=== PATIENT | female | born 1955 | race African-American/Black ===

== ENCOUNTER 2019-06-03 14:27 | Outpatient (CLI) | payer MEDICARE, MEDICAID ==
--- NOTE | 2019-06-03 15:18 | MMO ---
Bilateral MAMMO Bilat Screen [facility]. CLINICAL HISTORY: Patient is 64 years old and is seen for screening. The patient has the following family history of breast cancer: maternal aunt. The patient has no personal history of cancer. The patient has a history of right Excisional Biopsy in July, - benign, bilateral Breast reduction at age 46 and right Excisional Biopsy at age 41 - benign. VIEWS: The views performed were: bilateral craniocaudal with tomosynthesis and bilateral mediolateral oblique with tomosynthesis. FILMS COMPARED: The present examination has been compared to prior imaging studies performed at [facility] on 02/09/2015, 03/13/2016, 04/08/2017 and 04/12/2018. This study has been interpreted with the assistance of computer-aided detection. MAMMOGRAM FINDINGS: There are scattered fibroglandular densities. Benign calcifications are noted bilaterally. There are no suspicious masses, suspicious calcifications, or new areas of architectural distortion. IMPRESSION: THERE IS NO MAMMOGRAPHIC EVIDENCE OF MALIGNANCY. A ROUTINE FOLLOW-UP MAMMOGRAM IN 1 YEAR IS RECOMMENDED. THE RESULTS OF THIS EXAM WERE SENT TO THE PATIENT. ACR BI-RADS Category 2 - Benign finding MAMMOGRAPHY NOTE: 1. A negative mammogram report should not delay a biopsy if a dominant of clinically suspicious mass is present. 2. Approximately 10% to 15% of breast cancers are not detected by mammography. 3. Adenosis and dense breasts may obscure an underlying neoplasm. Reported by: MARGARITA PHILLIPS MD Electonically Signed: [id number]
== END 2019-06-03 14:28 | disposition home or self-care (01) ==
LOC: BICMAMMO 14:27
PROVIDERS: ATTEND Student in an Organized Health Care Education/Training Program
DX: Z12.31 Encounter for screening mammogram for malignant neoplasm of breast (principal); Z80.3 Family history of malignant neoplasm of breast
CPT/HCPCS: 77063; 77067

== ENCOUNTER 2020-07-27 12:55 | Outpatient (CLI) | payer MEDICARE, OTHER ==
--- NOTE | 2020-07-27 13:40 | MMO ---
Bilateral MAMMO Bilat Screen [facility]. CLINICAL HISTORY: Patient is 65 years old and is seen for screening. The patient has the following family history of breast cancer: maternal aunt. The patient has no personal history of cancer. The patient has a history of right Excisional Biopsy in July, - benign, bilateral Breast reduction at age 46 and right Excisional Biopsy at age 41 - benign. VIEWS: The views performed were: bilateral craniocaudal with tomosynthesis and bilateral mediolateral oblique with tomosynthesis. FILMS COMPARED: The present examination has been compared to prior imaging studies performed at [facility] on 03/13/2016, 04/08/2017, 04/12/2018 and 06/03/2019. This study has been interpreted with the assistance of computer-aided detection. MAMMOGRAM FINDINGS: There are scattered fibroglandular densities. There are stable benign appearing calcifications seen in both breasts. There are no suspicious masses, suspicious calcifications, or new areas of architectural distortion. IMPRESSION: THERE IS NO MAMMOGRAPHIC EVIDENCE OF MALIGNANCY. A ROUTINE FOLLOW-UP MAMMOGRAM IN 1 YEAR IS RECOMMENDED. THE RESULTS OF THIS EXAM WERE SENT TO THE PATIENT. ACR BI-RADS Category 2 - Benign finding MAMMOGRAPHY NOTE: 1. A negative mammogram report should not delay a biopsy if a dominant of clinically suspicious mass is present. 2. Approximately 10% to 15% of breast cancers are not detected by mammography. 3. Adenosis and dense breasts may obscure an underlying neoplasm. Reported by: LIZET LOPEZ MD Electonically Signed: [id number]
== END 2020-07-27 12:56 | disposition home or self-care (01) ==
LOC: BICMAMMO 12:55
PROVIDERS: ATTEND Student in an Organized Health Care Education/Training Program
DX: Z12.31 Encounter for screening mammogram for malignant neoplasm of breast (principal); Z91.89 Other specified personal risk factors, not elsewhere classified; Z98.890 Other specified postprocedural states; Z80.3 Family history of malignant neoplasm of breast
CPT/HCPCS: 77063; 77067

== ENCOUNTER 2021-08-20 12:31 | Outpatient (CLI) | payer MEDICARE, OTHER | END 2021-08-20 12:32 | disposition home or self-care (01) | LOC: BICMAMMO 12:31 | PROVIDERS: ATTEND Student in an Organized Health Care Education/Training Program | DX: Z12.31 Encounter for screening mammogram for malignant neoplasm of breast (principal); Z80.3 Family history of malignant neoplasm of breast; Z91.89 Other specified personal risk factors, not elsewhere classified; Z98.890 Other specified postprocedural states | CPT/HCPCS: 77063; 77067 ==

== ENCOUNTER 2022-07-30 09:54 | Outpatient (CLI) | payer OTHER, MEDICAID ==
[2022-07-30 11:26] LABS: Hemoglobin 12.4 g/dL (12.0-15.5); Mean Corpuscular HGB CONC 34.4 g/dL (32.0-36.0); Mean Corpuscular Hemoglobin 30.4 pg (27.0-33.0); Mean Corpuscular Volume 88.2 fl (81.6-98.3); Mean Platelet Volume 9.4 fl (7.4-10.4); Platelet Count 525 10x3/uL (150-450); RBC Distribution Width 14.3 % (11.5-14.5); Red Blood Cell (RBC) Count 4.08 10x6/uL (3.90-5.03); White Blood Cell (WBC) Count 9.2 10x3/uL (3.5-10.5)
[2022-07-30 11:54] LABS: PTT 30.5 sec (22.0-33.0); Prothrombin Time 10.4 sec (9.5-12.1)
[2022-07-30 11:59] LABS: Anion Gap 14 mmol/L (10-20); BUN (Urea Nitrogen) 13 mg/dL (9.8-20.1); Calc. Creatinine Clearance 0 mL/min (70-130); Calcium 9.7 mg/dL (7.8-10.44); Carbon Dioxide 25 mmol/L (23-31); Chloride 103 mmol/L (98-107); Estimated GFR 80; Glucose 116 mg/dL (80-115); Potassium 3.7 mmol/L (3.5-5.1); Sodium 138 mmol/L (136-145)
== END 2022-07-30 09:55 | disposition home or self-care (01) ==
LOC: LABBT 09:54
PROVIDERS: ATTEND Surgery
DX: Z01.818 Encounter for other preprocedural examination (principal); M54.12 Radiculopathy, cervical region; M48.02 Spinal stenosis, cervical region
CPT/HCPCS: 80048; 85027; 85610; 85730; 93005; 93010

== ENCOUNTER 2022-09-29 09:39 | Outpatient (CLI) | payer OTHER, MEDICAID ==
[2022-09-29 11:19] LABS: Hemoglobin 12.7 g/dL (12.0-15.5); Mean Corpuscular HGB CONC 34.5 g/dL (32.0-36.0); Mean Corpuscular Hemoglobin 30.6 pg (27.0-33.0); Mean Corpuscular Volume 88.7 fl (81.6-98.3); Mean Platelet Volume 9.4 fl (7.4-10.4); Platelet Count 522 10x3/uL (150-450); RBC Distribution Width 14.5 % (11.5-14.5); Red Blood Cell (RBC) Count 4.15 10x6/uL (3.90-5.03); White Blood Cell (WBC) Count 8.2 10x3/uL (3.5-10.5)
[2022-09-29 11:38] LABS: INR-International Normal Ratio 0.9; PTT 29.9 sec (22.0-33.0); Prothrombin Time 9.8 sec (9.5-12.1)
[2022-09-29 11:42] LABS: Anion Gap 15 mmol/L (10-20); BUN (Urea Nitrogen) 12 mg/dL (9.8-20.1); Calc. Creatinine Clearance 0 mL/min (70-130); Calcium 9.8 mg/dL (7.8-10.44); Carbon Dioxide 24 mmol/L (23-31); Chloride 105 mmol/L (98-107); Estimated GFR 72; Glucose 114 mg/dL (80-115); Potassium 3.8 mmol/L (3.5-5.1); Sodium 140 mmol/L (136-145)
== END 2022-09-29 09:40 | disposition home or self-care (01) ==
LOC: LABBT 09:39
PROVIDERS: ATTEND Surgery
DX: Z01.812 Encounter for preprocedural laboratory examination (principal); M48.02 Spinal stenosis, cervical region; M54.12 Radiculopathy, cervical region
CPT/HCPCS: 80048; 85027; 85610; 85730

== ENCOUNTER 2022-10-02 05:50 | Observation (INO) | payer OTHER, MEDICAID ==
[2022-09-30 11:45] VITALS: BMI 35.2
[2022-10-02] MEDS ORDERED: fentaNYL PF 100 MCG/2 ML SYRINGE ONE (06:08)
[2022-10-02] MEDS ORDERED: HYDROmorphone 0.5 MG/0.5 ML SYRINGE ONE ×2 (06:09→10:20)
[2022-10-02] MEDS ORDERED: SUGAMMADEX SODIUM 200 MG/2 ML VIAL ONE (06:09)
[2022-10-02] MEDS ORDERED: Thrombin 5000 UNITS/5 ML VIAL ONE (06:25)
[2022-10-02] MEDS ORDERED: CEFAZOLIN 2 GM VIAL ONE (06:58)
[2022-10-02] MEDS ORDERED: Midazolam HCl 2 mg/2 ml Vial ONE (06:59)
[2022-10-02] MEDS ORDERED: Sodium Chloride 0.9% 100 ML ONE (06:59)
[2022-10-02 07:08] LABS: SARS-CoV-2 NAA Rapid Test Not Detected (NotDetected)
[2022-10-02] MEDS ORDERED: PHENYLEPHRINE-NS 100 MCG/ML 10 ML SYRINGE ONE (07:38)
[2022-10-02] MEDS ORDERED: Dexamethasone 20 MG/5 ML VIAL ONE (07:38)
[2022-10-02] MEDS ORDERED: Lidocaine 1% PF 5 ML VIAL ONE (07:38)
[2022-10-02] MEDS ORDERED: Ondansetron PF 4 MG/2 ML Vial ONE ×2 (07:38)
[2022-10-02] MEDS ORDERED: Rocuronium Bromide 10 MG/ML (10ML VIAL) ONE (07:38)
[2022-10-02] MEDS ORDERED: PROPOFOL 200 MG/20 ML VIAL ONE (07:38)
[2022-10-02] MEDS ORDERED: Ketorolac Tromethamine 30 MG/ML VIAL ONE (07:38)
[2022-10-02] MEDS ORDERED: ePHEDrine 50 MG/ML VIAL ONE (07:38)
[2022-10-02] MEDS ORDERED: Acetaminophen/Codeine 30-300mg Tablet PO PRN (09:40)
[2022-10-02] MEDS ORDERED: diphenhydrAMINE 25 MG CAP PO PRN (09:40)
[2022-10-02] MEDS ORDERED: Fentanyl 100 MCG/2 ML VIAL SLOW IVP PRN (09:40)
[2022-10-02] MEDS ORDERED: Cepastat Lozenges 1 LOZ PO PRN (09:47)
[2022-10-02] MEDS ORDERED: hydrALAZINE 20 MG/ML VIAL SLOW IVP PRN (09:47)
[2022-10-02] MEDS ORDERED: tiZANidine HCl 4 MG TAB PO PRN (09:47)
[2022-10-02] MEDS ORDERED: Chloraseptic Spray 180 ml Bottle PO PRN (09:47)
[2022-10-02] MEDS ORDERED: Azelastine 137 MCG/Spray 30 ML NS PRN (09:49)
[2022-10-02] MEDS ORDERED: Dicyclomine 10 MG CAP PO PRN (09:49)
[2022-10-02] MEDS ORDERED: Montelukast Sodium 10 mg Tablet PO PRN (09:49)
[2022-10-02] MEDS ORDERED: Fentanyl 100 MCG/2 ML VIAL ONE (09:52)
[2022-10-02] MEDS ORDERED: Loratadine 10 MG TAB PO PRN (10:05)
[2022-10-02] MEDS: Sodium Chloride 0.9% 1,000 ML IV SCH ×2 (11:10→16:41)
[2022-10-02] MEDS: HYDROcodone/Acetaminophen 7.5/325 mg Tablet PO PRN (11:47)
[2022-10-02] MEDS: CEFAZOLIN 2 GM in Sodium Chloride 0.9% 100 ML IVPB SCH ×2 (14:00→22:06)
[2022-10-02] MEDS: Ondansetron PF 4 MG/2 ML Vial IVP PRN ×2 (15:34→20:15)
[2022-10-02] MEDS: Acetaminophen 325 MG TAB PO PRN ×2 (16:41→20:13)
[2022-10-02] MEDS ORDERED: Atorvastatin Calcium 40 MG TAB PO SCH (21:00)
[2022-10-02] MEDS ORDERED: Lisinopril 10 MG TAB PO SCH (21:00)
[2022-10-02] MEDS ORDERED: Amlodipine 10 MG TAB PO SCH (21:00)
[2022-10-02] MEDS ORDERED: Ezetimibe 10 MG TAB PO SCH (21:00)
[2022-10-02] MEDS ORDERED: Amitriptyline HCl 25 MG TAB PO SCH (21:00)
[2022-10-03] MEDS: HYDROcodone/Acetaminophen 7.5/325 mg Tablet PO PRN ×3 (00:06→11:10)
[2022-10-03 05:32] VITALS: TEMP 98.7
[2022-10-03] MEDS ORDERED: Hydrochlorothiazide 25 MG TAB PO SCH (09:00)
[2022-10-03 12:53] VITALS: BP 151/86
== END 2022-10-03 13:20 | disposition home or self-care (01) ==
LOC: SDC 05:50 → SURG A 11:24
PROVIDERS: ADMIT Surgery; ATTEND Surgery
PROC: 0RG20A0 Fusion of 2 or more Cervical Vertebral Joints with Interbody Fusion Device, Anterior Approach, Anterior Column, Open Approach (ICD-10-PCS; principal; 2022-10-02)
DX: M48.02 Spinal stenosis, cervical region (principal); M54.12 Radiculopathy, cervical region; M40.202 Unspecified kyphosis, cervical region; Z87.891 Personal history of nicotine dependence; Z79.82 Long term (current) use of aspirin; Z79.899 Other long term (current) drug therapy; Z88.5 Allergy status to narcotic agent; Z20.822 Contact with and (suspected) exposure to COVID-19
CPT/HCPCS: 20930; 20936; 22551; 22552; 22845; 22853 ×2; C1713 ×5; U0002; 96374; 96375; 96376; G0378; J1100; J1170; J1885; J2250; J2405; J2704; J3010; J3490; J7050

== ENCOUNTER 2023-09-03 05:45 | Inpatient (IN) | payer OTHER, MEDICAID ==
[2023-08-31 11:18] VITALS: BMI 36.2
[2023-08-31 12:56] LABS: PTT 31.7 sec (22.0-33.0); Prothrombin Time 10.5 sec (9.5-12.1)
[2023-08-31 12:58] LABS: Hematocrit 38.1 % (34.9-44.5); Hemoglobin 12.9 g/dL (12.0-15.5); Mean Corpuscular HGB CONC 33.9 g/dL (32.0-36.0); Mean Corpuscular Hemoglobin 30.3 pg (27.0-33.0); Mean Corpuscular Volume 89.4 fl (81.6-98.3); Mean Platelet Volume 9.7 fl (7.4-10.4); Platelet Count 478 10x3/uL (150-450); RBC Distribution Width 14.5 % (11.5-14.5); Red Blood Cell (RBC) Count 4.26 10x6/uL (3.90-5.03); White Blood Cell (WBC) Count 7.8 10x3/uL (3.5-10.5)
[2023-08-31 13:00] LABS: Anion Gap 14 mmol/L (10-20); BUN (Urea Nitrogen) 14 mg/dL (9.8-20.1); Calc. Creatinine Clearance 0 mL/min (70-130); Calcium 9.5 mg/dL (7.8-10.44); Carbon Dioxide 26 mmol/L (23-31); Chloride 104 mmol/L (98-107); Estimated GFR 77; Glucose 110 mg/dL (80-115); Potassium 3.9 mmol/L (3.5-5.1); Sodium 140 mmol/L (136-145)
[~2023-09-03 05:45] MED LIST: SUCCINYLCHOLINE/SOD CL,ISO/PF 200 MG/10 ML SYRINGE FS ONE
[2023-09-03] MEDS ORDERED: Vancomycin 1 GM VIAL ONE (06:26)
[2023-09-03] MEDS ORDERED: Thrombin 5000 UNITS/5 ML VIAL ONE (06:26)
[2023-09-03] MEDS ORDERED: Vecuronium 10 MG VIAL ONE ×2 (06:32→10:14)
[2023-09-03] MEDS ORDERED: Lidocaine 1% PF 5 ML VIAL ONE (06:32)
[2023-09-03] MEDS ORDERED: PROPOFOL 20 ML ONE (06:32)
[2023-09-03] MEDS ORDERED: fentaNYL PF 100 MCG/2 ML SYRINGE ONE (06:38)
[2023-09-03] MEDS ORDERED: Sodium Chloride 0.9% 100 ML ONE ×2 (07:09→15:27)
[2023-09-03] MEDS ORDERED: CEFAZOLIN 2 GM VIAL ONE ×2 (07:09→15:26)
[2023-09-03] MEDS ORDERED: Albumin 5% 500 ML ONE (07:20)
[2023-09-03] MEDS ORDERED: fentaNYL 50 mcg/mL 1 mL Vial ONE ×5 (08:08→13:23)
[2023-09-03] MEDS ORDERED: ePHEDrine Sulfate 50 MG/10 ML VIAL ONE (08:20)
[2023-09-03] MEDS ORDERED: PHENYLEPHRINE-NS 100 MCG/ML 10 ML SYRINGE ONE (08:25)
[2023-09-03] MEDS ORDERED: SUGAMMADEX SODIUM 200 MG/2 ML VIAL ONE (11:37)
[2023-09-03] MEDS ORDERED: Ondansetron PF 4 MG/2 ML Vial ONE (11:37)
[2023-09-03] MEDS ORDERED: Dexamethasone 4 mg/ml Vial ONE (11:37)
[2023-09-03] MEDS ORDERED: Milk Of Magnesia 30 ML UDCUP PO PRN (12:37)
[2023-09-03] MEDS ORDERED: fentaNYL 50 mcg/mL 1 mL Vial SLOW IVP PRN (12:37)
[2023-09-03] MEDS ORDERED: diphenhydrAMINE 25 MG CAP PO PRN ×2 (12:37→17:29)
[2023-09-03] MEDS ORDERED: Ondansetron PF 4 MG/2 ML Vial IVP PRN ×2 (12:37→17:29)
[2023-09-03] MEDS ORDERED: Acetaminophen/Codeine 30-300mg Tablet PO PRN (12:37)
[2023-09-03] MEDS ORDERED: HYDROcodone/Acetaminophen 10/325 mg Tablet PO PRN (12:37)
[2023-09-03] MEDS ORDERED: Diazepam 5 MG TAB PO PRN (12:40)
[2023-09-03] MEDS ORDERED: hydrALAZINE 20 MG/ML VIAL SLOW IVP PRN (12:40)
[2023-09-03] MEDS ORDERED: HYDROcodone/Acetaminophen 5/325 mg Tablet PO PRN (12:40)
[2023-09-03] MEDS ORDERED: HYDROmorphone 0.5 MG/0.5 ML SYRINGE ONE ×4 (13:58→16:16)
[2023-09-03] MEDS ORDERED: Ketorolac Tromethamine 30 MG (1 mL) VIAL ONE (13:58)
[2023-09-03] MEDS: CEFAZOLIN 2 GM in Sodium Chloride 0.9% 100 ML IVPB SCH ×2 (15:31→21:41)
[2023-09-03] MEDS ORDERED: FENTANYL 500 MCG/10 ML VIAL 2,000 MCG in Sodium Chloride 0.9% 60 ML IV PRN (17:29)
[2023-09-03] MEDS ORDERED: Naloxone HCl 0.4 mg/ml Vial IV PRN (17:29)
[2023-09-03] MEDS ORDERED: Promethazine HCl 25 MG/ML VIAL IM PRN (17:29)
[2023-09-03] MEDS ORDERED: diphenhydrAMINE 50 MG/ML VIAL IM PRN (17:29)
[2023-09-03] MEDS ORDERED: diphenhydrAMINE 50 MG/ML VIAL IVP PRN (17:29)
[2023-09-03] MEDS ORDERED: Communication Order-Pharmacy FS SCH (17:30)
[2023-09-03] MEDS: Sodium Chloride 0.9% 1,000 ML IV SCH ×2 (17:38→18:53)
[2023-09-03] MEDS ORDERED: Azelastine 137 MCG/NASAL Spray 30 ML NS PRN (19:09)
[2023-09-03] MEDS ORDERED: Dicyclomine 10 MG CAP PO PRN (19:09)
[2023-09-03] MEDS ORDERED: Montelukast Sodium 10 mg Tablet PO PRN (19:09)
[2023-09-03] MEDS ORDERED: Loratadine 10 MG TAB PO PRN (19:26)
[2023-09-03] MEDS: Atorvastatin Calcium 40 MG TAB PO SCH (21:41)
[2023-09-03] MEDS: Amlodipine 10 MG TAB PO SCH (21:41)
[2023-09-03] MEDS: Ezetimibe 10 MG TAB PO SCH (21:42)
[2023-09-03] MEDS: Amitriptyline HCl 25 MG TAB PO SCH (21:42)
[2023-09-03] MEDS: Lisinopril 10 MG TAB PO SCH (21:42)
[2023-09-03] MEDS: Docusate 100 MG CAP PO SCH (21:42)
[2023-09-04 05:35] LABS: #Monocytes 1.4 thou/uL (0.11-0.59); #Neutrophils 15.4 thou/uL (1.40-6.50); %Basophils 0.1 % (0.0-1.0); %Lymphocytes 4.6 % (21.0-51.0); %Monocytes 7.9 % (0.0-10.0); Hematocrit 31.6 % (36.0-47.0); Hemoglobin 10.4 g/dL (12.0-16.0); Mean Corpuscular HGB CONC 32.9 g/dL (32.0-36.0); Mean Corpuscular Hemoglobin 30.1 pg (27.0-31.0); Mean Corpuscular Volume 91.6 fl (78.0-98.0); Mean Platelet Volume 9.3 fL (7.4-10.4); Platelet Count 366 10x3/uL (130-400); RBC Distribution Width 14.6 % (11.5-14.5); Red Blood Cell (RBC) Count 3.45 mill/uL (4.20-5.40); White Blood Cell (WBC) Count 17.7 10x3/uL (4.8-10.8)
[2023-09-04] MEDS: CEFAZOLIN 2 GM in Sodium Chloride 0.9% 100 ML IVPB SCH (05:35)
[2023-09-04] MEDS: Acetaminophen 325 MG TAB PO PRN ×3 (05:38→22:21)
[2023-09-04 05:55] LABS: Anion Gap 12 mmol/L (10-20); BUN (Urea Nitrogen) 10 mg/dL (9.8-20.1); Calc. Creatinine Clearance 126 mL/min (70-130); Calcium 8.5 mg/dL (7.8-10.44); Carbon Dioxide 23 mmol/L (23-31); Chloride 107 mmol/L (98-107); Estimated GFR 90; Glucose 127 mg/dL (80-115); Potassium 3.4 mmol/L (3.5-5.1); Sodium 139 mmol/L (136-145)
[2023-09-04] MEDS: Hydrochlorothiazide 25 MG TAB PO SCH (08:41)
[2023-09-04] MEDS: Docusate 100 MG CAP PO SCH ×2 (08:41→20:37)
[2023-09-04] MEDS ORDERED: HYDROcodone/Acetaminophen 5/325 mg Tablet PO PRN (08:50)
[2023-09-04] MEDS ORDERED: fentaNYL 50 mcg/mL 1 mL Vial SLOW IVP PRN (09:12)
[2023-09-04] MEDS: HYDROcodone/Acetaminophen 10/325 mg Tablet PO PRN (11:29)
[2023-09-04] MEDS: Acetaminophen/Codeine 30-300mg Tablet PO PRN (16:24)
[2023-09-04] MEDS: Sodium Chloride 0.9% 1,000 ML IV SCH (17:44)
[2023-09-04] MEDS: Atorvastatin Calcium 40 MG TAB PO SCH (20:37)
[2023-09-04] MEDS: Ezetimibe 10 MG TAB PO SCH (20:37)
[2023-09-04] MEDS: Amlodipine 10 MG TAB PO SCH (20:38)
[2023-09-04] MEDS: Lisinopril 10 MG TAB PO SCH (20:38)
[2023-09-04] MEDS: Amitriptyline HCl 25 MG TAB PO SCH (20:38)
[2023-09-05] MEDS: Acetaminophen/Codeine 30-300mg Tablet PO PRN ×3 (03:31→18:23)
[2023-09-05] MEDS: Acetaminophen 325 MG TAB PO PRN ×3 (03:31→18:23)
[2023-09-05] MEDS: Sodium Chloride 0.9% 1,000 ML IV SCH ×2 (03:33→18:22)
[2023-09-05] MEDS: Hydrochlorothiazide 25 MG TAB PO SCH (08:47)
[2023-09-05] MEDS: Docusate 100 MG CAP PO SCH ×2 (08:47→20:26)
[2023-09-05] MEDS: HYDROcodone/Acetaminophen 10/325 mg Tablet PO PRN (16:20)
[2023-09-05] MEDS: Lisinopril 10 MG TAB PO SCH (20:25)
[2023-09-05] MEDS: Amlodipine 10 MG TAB PO SCH (20:25)
[2023-09-05] MEDS: Amitriptyline HCl 25 MG TAB PO SCH (20:26)
[2023-09-05] MEDS: Atorvastatin Calcium 40 MG TAB PO SCH (20:26)
[2023-09-05] MEDS: Ezetimibe 10 MG TAB PO SCH (20:26)
[2023-09-06] MEDS: Acetaminophen/Codeine 30-300mg Tablet PO PRN ×3 (06:11→21:37)
[2023-09-06] MEDS: Acetaminophen 325 MG TAB PO PRN ×3 (06:12→21:37)
[2023-09-06] MEDS ORDERED: FLU VACC QS2023(65UP)/MF59C/PF 60 MCG/0.5 ML SYRINGE IM ONE (09:00)
[2023-09-06] MEDS: Hydrochlorothiazide 25 MG TAB PO SCH (09:15)
[2023-09-06] MEDS: Docusate 100 MG CAP PO SCH ×2 (09:15→20:28)
[2023-09-06] MEDS: Sodium Chloride 0.9% 1,000 ML IV SCH ×2 (16:29→22:26)
[2023-09-06] MEDS: Ezetimibe 10 MG TAB PO SCH (20:27)
[2023-09-06] MEDS: Amitriptyline HCl 25 MG TAB PO SCH (20:27)
[2023-09-06] MEDS: Amlodipine 10 MG TAB PO SCH (20:27)
[2023-09-06] MEDS: Lisinopril 10 MG TAB PO SCH (20:28)
[2023-09-06] MEDS: Atorvastatin Calcium 40 MG TAB PO SCH (20:28)
[2023-09-07] MEDS: Acetaminophen 325 MG TAB PO PRN ×4 (04:49→21:38)
[2023-09-07] MEDS: Acetaminophen/Codeine 30-300mg Tablet PO PRN ×4 (04:50→21:39)
[2023-09-07] MEDS: Hydrochlorothiazide 25 MG TAB PO SCH (08:55)
[2023-09-07] MEDS: Sodium Chloride 0.9% 1,000 ML IV SCH (08:55)
[2023-09-07] MEDS: Docusate 100 MG CAP PO SCH ×2 (08:55→21:37)
[2023-09-07] MEDS: tiZANidine HCl 4 MG TAB PO PRN ×2 (08:55→21:38)
[2023-09-07] MEDS: Amlodipine 10 MG TAB PO SCH (21:37)
[2023-09-07] MEDS: Atorvastatin Calcium 40 MG TAB PO SCH (21:37)
[2023-09-07] MEDS: Lisinopril 10 MG TAB PO SCH (21:39)
[2023-09-07] MEDS: Amitriptyline HCl 25 MG TAB PO SCH (21:39)
[2023-09-07] MEDS: Ezetimibe 10 MG TAB PO SCH (21:39)
[2023-09-08] MEDS: Sodium Chloride 0.9% 1,000 ML IV SCH ×2 (01:20→11:07)
[2023-09-08] MEDS: Acetaminophen/Codeine 30-300mg Tablet PO PRN ×3 (05:53→15:22)
[2023-09-08] MEDS: Acetaminophen 325 MG TAB PO PRN ×3 (05:54→15:22)
[2023-09-08] MEDS: Hydrochlorothiazide 25 MG TAB PO SCH (09:09)
[2023-09-08] MEDS: Docusate 100 MG CAP PO SCH ×2 (09:09→20:16)
[2023-09-08] MEDS: tiZANidine HCl 4 MG TAB PO PRN ×2 (11:15→21:15)
[2023-09-08] MEDS: Amlodipine 10 MG TAB PO SCH (20:16)
[2023-09-08] MEDS: Atorvastatin Calcium 40 MG TAB PO SCH (20:16)
[2023-09-08] MEDS: Amitriptyline HCl 25 MG TAB PO SCH (20:16)
[2023-09-08] MEDS: Lisinopril 10 MG TAB PO SCH (20:16)
[2023-09-08] MEDS: Ezetimibe 10 MG TAB PO SCH (20:17)
[2023-09-09] MEDS: Sodium Chloride 0.9% 1,000 ML IV SCH ×2 (01:25→15:42)
[2023-09-09] MEDS: HYDROcodone/Acetaminophen 10/325 mg Tablet PO PRN ×4 (03:42→17:15)
[2023-09-09] MEDS: tiZANidine HCl 4 MG TAB PO PRN (05:19)
[2023-09-09] MEDS: Hydrochlorothiazide 25 MG TAB PO SCH (08:27)
[2023-09-09] MEDS: Docusate 100 MG CAP PO SCH ×2 (08:27→20:46)
[2023-09-09] MEDS ORDERED: Dexamethasone 4 MG TAB PO SCH (09:00)
[2023-09-09 09:35] LABS: #Basophils 0.1 thou/uL (0.0-0.2); #Eosinphils 0.2 thou/uL (0.0-0.7); #Monocytes 1.1 thou/uL (0.11-0.59); #Neutrophils 7.2 thou/uL (1.40-6.50); %Basophils 0.6 % (0.0-1.0); %Eosinophils 1.8 % (0.0-10.0); %Lymphocytes 16.9 % (21.0-51.0); %Monocytes 10.3 % (0.0-10.0); %Neutrophils 69.3 % (42.0-75.0); Hematocrit 31.8 % (36.0-47.0); Hemoglobin 10.5 g/dL (12.0-16.0); Mean Corpuscular Hemoglobin 29.7 pg (27.0-31.0); Mean Corpuscular Volume 89.8 fl (78.0-98.0); Mean Platelet Volume 8.7 fL (7.4-10.4); Platelet Count 542 10x3/uL (130-400); Red Blood Cell (RBC) Count 3.54 mill/uL (4.20-5.40); White Blood Cell (WBC) Count 10.3 10x3/uL (4.8-10.8)
[2023-09-09 10:03] LABS: Anion Gap 16 mmol/L (10-20); BUN (Urea Nitrogen) 12 mg/dL (9.8-20.1); Calc. Creatinine Clearance 121 mL/min (70-130); Calcium 9.3 mg/dL (7.8-10.44); Carbon Dioxide 29 mmol/L (23-31); Chloride 97 mmol/L (98-107); Estimated GFR 86; Glucose 130 mg/dL (80-115); Potassium 3.6 mmol/L (3.5-5.1); Sodium 138 mmol/L (136-145)
[2023-09-09] MEDS: Dexamethasone 4 MG TAB PO SCH ×3 (13:17→23:25)
[2023-09-09] MEDS: Amitriptyline HCl 25 MG TAB PO SCH (20:46)
[2023-09-09] MEDS: Lisinopril 10 MG TAB PO SCH (20:46)
[2023-09-09] MEDS: Ezetimibe 10 MG TAB PO SCH (20:46)
[2023-09-09] MEDS: Amlodipine 10 MG TAB PO SCH (20:46)
[2023-09-09] MEDS: Atorvastatin Calcium 40 MG TAB PO SCH (20:46)
[2023-09-10] MEDS: Sodium Chloride 0.9% 1,000 ML IV SCH ×2 (05:37→20:37)
[2023-09-10] MEDS: Dexamethasone 1 MG TAB PO SCH ×3 (05:47→17:30)
[2023-09-10] MEDS: HYDROcodone/Acetaminophen 10/325 mg Tablet PO PRN ×2 (08:48→20:33)
[2023-09-10] MEDS: Docusate 100 MG CAP PO SCH ×2 (08:49→20:35)
[2023-09-10] MEDS: Hydrochlorothiazide 25 MG TAB PO SCH (08:49)
[2023-09-10] MEDS: Atorvastatin Calcium 40 MG TAB PO SCH (20:33)
[2023-09-10] MEDS: Lisinopril 10 MG TAB PO SCH (20:34)
[2023-09-10] MEDS: Amlodipine 10 MG TAB PO SCH (20:34)
[2023-09-10] MEDS: Amitriptyline HCl 25 MG TAB PO SCH (20:34)
[2023-09-10] MEDS: Ezetimibe 10 MG TAB PO SCH (20:35)
[2023-09-11] MEDS: Dexamethasone 1 MG TAB PO SCH ×4 (00:09→17:02)
[2023-09-11] MEDS: HYDROcodone/Acetaminophen 10/325 mg Tablet PO PRN ×2 (04:28→13:50)
[2023-09-11] MEDS: Sodium Chloride 0.9% 1,000 ML IV SCH (08:46)
[2023-09-11] MEDS: Hydrochlorothiazide 25 MG TAB PO SCH (08:47)
[2023-09-11] MEDS: Docusate 100 MG CAP PO SCH (08:47)
[2023-09-11 16:06] VITALS: BP 147/84; TEMP 98.3
[2023-09-12] MEDS ORDERED: Dexamethasone 1 MG TAB PO SCH (06:00)
== END 2023-09-11 17:30 | disposition home or self-care (01) | DRG 460 ==
LOC: SDC 05:45 → SJJU 12:37 → OBSVTOIN 09-04 08:49
PROVIDERS: ADMIT Surgery; ATTEND Surgery
PROC: 0SG0071 Fusion of Lumbar Vertebral Joint with Autologous Tissue Substitute, Posterior Approach, Posterior Column, Open Approach (ICD-10-PCS; principal; 2023-09-03)
PROC: 01NB0ZZ Release Lumbar Nerve, Open Approach (ICD-10-PCS; 2023-09-03)
PROC: 30233J1 Transfusion of Nonautologous Serum Albumin into Peripheral Vein, Percutaneous Approach (ICD-10-PCS; 2023-09-03)
PROC: 3E033XZ Introduction of Vasopressor into Peripheral Vein, Percutaneous Approach (ICD-10-PCS; 2023-09-03)
DX: M48.061 Spinal stenosis, lumbar region without neurogenic claudication (principal); M43.16 Spondylolisthesis, lumbar region
CPT/HCPCS: 36415; 80048; 85025; 85027; 85610; 85730; 86850; 86900; 86901; 93970; A4314; C1713; C1889; J1100; J1170; J1885; J2405; J2704; J3010; J3370; J3490; J7050; J8540; P9045

== ENCOUNTER 2023-09-23 13:23 | Inpatient (IN) | payer OTHER, MEDICAID ==
[2023-09-23 16:30] VITALS: BMI 51.7
[2023-09-23] MEDS ORDERED: HYDROcodone/Acetaminophen 5/325 mg Tablet PO PRN (16:52)
[2023-09-23] MEDS ORDERED: Acetaminophen 325 MG TAB PO PRN (16:52)
[2023-09-23] MEDS ORDERED: tiZANidine HCl 4 MG TAB PO PRN (16:53)
[2023-09-23 17:31] LABS: #Basophils 0.1 thou/uL (0.0-0.2); #Eosinphils 0.1 thou/uL (0.0-0.7); #Monocytes 1.3 thou/uL (0.11-0.59); #Neutrophils 11.7 thou/uL (1.40-6.50); %Basophils 0.4 % (0.0-1.0); %Eosinophils 0.6 % (0.0-10.0); %Lymphocytes 7.9 % (21.0-51.0); %Monocytes 9.2 % (0.0-10.0); %Neutrophils 81.5 % (42.0-75.0); Hematocrit 29.8 % (36.0-47.0); Hemoglobin 9.7 g/dL (12.0-16.0); Mean Corpuscular HGB CONC 32.6 g/dL (32.0-36.0); Mean Corpuscular Hemoglobin 29.7 pg (27.0-31.0); Mean Corpuscular Volume 91.1 fl (78.0-98.0); Mean Platelet Volume 8.3 fL (7.4-10.4); Platelet Count 658 10x3/uL (130-400); RBC Distribution Width 14.6 % (11.5-14.5); Red Blood Cell (RBC) Count 3.27 mill/uL (4.20-5.40); White Blood Cell (WBC) Count 14.4 10x3/uL (4.8-10.8)
[2023-09-23 17:54] LABS: INR-International Normal Ratio 1.2; Prothrombin Time 15.1 sec (12.0-14.7)
[2023-09-23 17:55] LABS: Anion Gap 16 mmol/L (10-20); BUN (Urea Nitrogen) 15 mg/dL (9.8-20.1); CRP (Inflammatory) 6.26 mg/dL (= or < 0.5); Calc. Creatinine Clearance 148 mL/min (70-130); Calcium 8.8 mg/dL (7.8-10.44); Carbon Dioxide 20 mmol/L (23-31); Chloride 105 mmol/L (98-107); Estimated GFR 73; Glucose 111 mg/dL (80-115); PTT 34.4 sec (22.9-36.1); Sodium 137 mmol/L (136-145)
[2023-09-23] MEDS: Cefepime 2 GM in Sodium Chloride 0.9% 100 ML IVPB SCH (18:45)
[2023-09-23] MEDS ORDERED: Vancomycin 2 GM in Sodium Chloride 0.9% 500 ML IVPB SCH (21:00)
[2023-09-23] MEDS ORDERED: hydrALAZINE 20 MG/ML VIAL SLOW IVP PRN (21:03)
[2023-09-23] MEDS: metroNIDAZOLE 500 MG in Premix 1 BAG IVPB SCH (21:40)
[2023-09-24] MEDS: HYDROcodone/Acetaminophen 5/325 mg Tablet PO PRN ×2 (03:28→18:26)
[2023-09-24] MEDS: Cefepime 2 GM in Sodium Chloride 0.9% 100 ML IVPB SCH ×2 (06:39→18:26)
[2023-09-24] MEDS: metroNIDAZOLE 500 MG in Premix 1 BAG IVPB SCH ×3 (06:39→22:51)
[2023-09-24] MEDS: Vancomycin 1 GM in Premix 1 BAG IVPB SCH ×2 (08:46→21:36)
[2023-09-24] MEDS ORDERED: PROPOFOL 20 ML ONE (09:51)
[2023-09-24] MEDS ORDERED: Rocuronium Bromide 10 MG/ML (10ML VIAL) ONE (09:52)
[2023-09-24] MEDS ORDERED: Thrombin 5000 UNITS/5 ML VIAL ONE (10:10)
[2023-09-24] MEDS ORDERED: Fentanyl 250 MCG/5 ML VIAL ONE (11:12)
[2023-09-24] MEDS ORDERED: Vancomycin 1 GM VIAL ONE (12:04)
[2023-09-24] MEDS ORDERED: Ondansetron PF 4 MG/2 ML Vial ONE (12:30)
[2023-09-24] MEDS ORDERED: diphenhydrAMINE 50 MG/ML VIAL ONE (12:30)
[2023-09-24] MEDS ORDERED: SUGAMMADEX SODIUM 200 MG/2 ML VIAL ONE (12:31)
[2023-09-24] MEDS ORDERED: Ondansetron PF 4 MG/2 ML Vial IVP PRN (13:42)
[2023-09-24] MEDS ORDERED: Milk Of Magnesia 30 ML UDCUP PO PRN (13:42)
[2023-09-24] MEDS ORDERED: fentaNYL 50 mcg/mL 1 mL Vial ONE ×3 (13:43→14:16)
[2023-09-24] MEDS ORDERED: Dicyclomine 10 MG CAP PO PRN (13:43)
[2023-09-24] MEDS ORDERED: Montelukast Sodium 10 mg Tablet PO PRN (13:43)
[2023-09-24] MEDS ORDERED: Azelastine 137 MCG/NASAL Spray 30 ML NS PRN (13:43)
[2023-09-24] MEDS ORDERED: Loratadine 10 MG TAB PO PRN (14:05)
[2023-09-24] MEDS ORDERED: metroNIDAZOLE 500 MG (100 mL) BAG ONE (14:24)
[2023-09-24] MEDS: Sodium Chloride 0.9% 1,000 ML IV SCH (15:35)
[2023-09-24] MEDS: fentaNYL 50 mcg/mL 1 mL Vial SLOW IVP PRN ×2 (16:23→21:38)
[2023-09-24] MEDS: Amitriptyline HCl 25 MG TAB PO SCH (21:36)
[2023-09-24] MEDS: Ezetimibe 10 MG TAB PO SCH (21:37)
[2023-09-24] MEDS: Amlodipine 10 MG TAB PO SCH (21:37)
[2023-09-24] MEDS: Atorvastatin Calcium 40 MG TAB PO SCH (21:38)
[2023-09-24] MEDS: Lisinopril 10 MG TAB PO SCH (21:38)
[2023-09-25] MEDS: HYDROcodone/Acetaminophen 5/325 mg Tablet PO PRN ×4 (00:35→18:27)
[2023-09-25] MEDS: Sodium Chloride 0.9% 1,000 ML IV SCH ×2 (03:05→17:06)
[2023-09-25 05:07] LABS: #Basophils 0.1 thou/uL (0.0-0.2); #Eosinphils 0.2 thou/uL (0.0-0.7); #Monocytes 1.3 thou/uL (0.11-0.59); %Basophils 0.5 % (0.0-1.0); %Eosinophils 1.8 % (0.0-10.0); %Lymphocytes 10.3 % (21.0-51.0); %Monocytes 11.8 % (0.0-10.0); %Neutrophils 75.1 % (42.0-75.0); Hematocrit 25.4 % (36.0-47.0); Hemoglobin 8.5 g/dL (12.0-16.0); Mean Corpuscular HGB CONC 33.5 g/dL (32.0-36.0); Mean Corpuscular Hemoglobin 30.4 pg (27.0-31.0); Mean Corpuscular Volume 90.7 fl (78.0-98.0); Mean Platelet Volume 8.3 fL (7.4-10.4); Platelet Count 569 10x3/uL (130-400); RBC Distribution Width 14.3 % (11.5-14.5); White Blood Cell (WBC) Count 10.7 10x3/uL (4.8-10.8)
[2023-09-25] MEDS: metroNIDAZOLE 500 MG in Premix 1 BAG IVPB SCH ×2 (05:17→14:45)
[2023-09-25 05:39] LABS: Anion Gap 10 mmol/L (10-20); BUN (Urea Nitrogen) 8 mg/dL (9.8-20.1); Calc. Creatinine Clearance 161 mL/min (70-130); Calcium 9.2 mg/dL (7.8-10.44); Carbon Dioxide 25 mmol/L (23-31); Chloride 104 mmol/L (98-107); Estimated GFR 81; Glucose 108 mg/dL (80-115); Potassium 3.6 mmol/L (3.5-5.1); Sodium 135 mmol/L (136-145)
[2023-09-25] MEDS: Cefepime 2 GM in Sodium Chloride 0.9% 100 ML IVPB SCH ×2 (06:35→18:26)
[2023-09-25] MEDS: Hydrochlorothiazide 25 MG TAB PO SCH (08:28)
[2023-09-25] MEDS: Vancomycin 1 GM in Premix 1 BAG IVPB SCH ×2 (08:28→21:21)
[2023-09-25 09:35] LABS: Vancomycin, Trough 11.6 ug/mL
[2023-09-25] MEDS: Atorvastatin Calcium 40 MG TAB PO SCH (21:19)
[2023-09-25] MEDS: Amlodipine 10 MG TAB PO SCH (21:19)
[2023-09-25] MEDS: Lisinopril 10 MG TAB PO SCH (21:19)
[2023-09-25] MEDS: Ezetimibe 10 MG TAB PO SCH (21:20)
[2023-09-25] MEDS: Amitriptyline HCl 25 MG TAB PO SCH (21:20)
[2023-09-25] MEDS ORDERED: Sulfameth/Trimethoprim DS 800-160mg TAB PO SCH (23:00)
[2023-09-26] MEDS: HYDROcodone/Acetaminophen 5/325 mg Tablet PO PRN ×3 (01:12→14:08)
[2023-09-26] MEDS: Vancomycin 1 GM in Premix 1 BAG IVPB SCH (03:25)
[2023-09-26] MEDS: metroNIDAZOLE 500 MG in Premix 1 BAG IVPB SCH (03:26)
[2023-09-26] MEDS: Hydrochlorothiazide 25 MG TAB PO SCH (08:42)
[2023-09-26] MEDS ORDERED: Sulfameth/Trimethoprim DS 800-160mg TAB PO SCH (09:00)
[2023-09-26 12:13] VITALS: BP 167/99; TEMP 97.8
== END 2023-09-26 15:00 | disposition home or self-care (01) | DRG 920 ==
LOC: SURG A 15:32
PROVIDERS: ADMIT Surgery; ATTEND Surgery
PROC: 3E10X8Z Irrigation of Skin and Mucous Membranes using Irrigating Substance (ICD-10-PCS; principal; 2023-09-24)
DX: T81.30XA Disruption of wound, unspecified, initial encounter (principal); Z68.43 Body mass index [BMI] 50.0-59.9, adult; L76.82 Other postprocedural complications of skin and subcutaneous tissue; E66.01 Morbid (severe) obesity due to excess calories; I10 Essential (primary) hypertension; E78.5 Hyperlipidemia, unspecified; K21.9 Gastro-esophageal reflux disease without esophagitis; Z88.5 Allergy status to narcotic agent; Z79.899 Other long term (current) drug therapy; Z79.82 Long term (current) use of aspirin; Z98.890 Other specified postprocedural states
CPT/HCPCS: 36415; 80048; 80202; 82565; 85025; 85610; 85730; 86140; 87040; J0360; J0692; J1200; J2405; J2704; J3010; J3370; J3370-JW; J3490; J7030; J7050

== ENCOUNTER 2024-03-09 12:25 | Outpatient (CLI) | payer OTHER, MEDICAID | END 2024-03-09 12:26 | disposition home or self-care (01) | LOC: BICMAMMO 12:25 | PROVIDERS: ATTEND Student in an Organized Health Care Education/Training Program | DX: Z12.31 Encounter for screening mammogram for malignant neoplasm of breast (principal); Z80.3 Family history of malignant neoplasm of breast; Z91.89 Other specified personal risk factors, not elsewhere classified; Z98.890 Other specified postprocedural states | CPT/HCPCS: 77063; 77067 ==